=== PATIENT | female | born 1980 | race Caucasian/White ===

== ENCOUNTER 2016-12-20 18:55 | Emergency (ER) | payer BC ==
[~2016-12-20] VITALS: Ht 160 cm; Wt 185.0 kg
[2016-12-20] MEDS ORDERED: KETOROLAC 30 MG INJ IM STA (19:05)
[2016-12-20 19:30] VITALS: Ht 160 cm; Wt 185.0 kg
[2016-12-20] MEDS ORDERED: DIAZEPAM 5 MG/ML SYG IM ONE (19:30)
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
[2016-12-20] MEDS ORDERED: HYDR-906 PO (20:19)
[2016-12-20 20:27] VITALS: BP 129/74; PULSE 78; RESP 18
== END 2016-12-20 20:27 | disposition home or self-care (01) ==
LOC: E/R 18:55
DX: S16.1XXA Strain of muscle, fascia and tendon at neck level, initial encounter (principal); R40.2142 Coma scale, eyes open, spontaneous, at arrival to emergency department; R40.2252 Coma scale, best verbal response, oriented, at arrival to emergency department; R40.2362 Coma scale, best motor response, obeys commands, at arrival to emergency department; V49.40XA Driver injured in collision with unspecified motor vehicles in traffic accident, initial encounter
CPT/HCPCS: 72125; 96372; J1885; J3360; Z7502